=== PATIENT | male | born 1940 | race Caucasian/White ===

== ENCOUNTER 2018-07-19 12:31 | Outpatient (CLI) | payer OTHER | END 2018-07-19 23:59 | disposition home or self-care (01) | LOC: PETCFH 12:31 | PROVIDERS: ATTEND Internal Medicine | DX: R91.1 Solitary pulmonary nodule (principal) | CPT/HCPCS: 78815; A9552 ==

== ENCOUNTER → 2020-01-21 | Outpatient (CLI) | payer OTHER | END | disposition home or self-care (01) | LOC: PETCFH 01-08 09:24 | PROVIDERS: ATTEND Internal Medicine Pulmonary Disease | DX: C34.32 Malignant neoplasm of lower lobe, left bronchus or lung (principal); J43.9 Emphysema, unspecified; R91.8 Other nonspecific abnormal finding of lung field; J34.89 Other specified disorders of nose and nasal sinuses; K57.30 Diverticulosis of large intestine without perforation or abscess without bleeding; I25.10 Atherosclerotic heart disease of native coronary artery without angina pectoris; I70.0 Atherosclerosis of aorta; I77.810 Thoracic aortic ectasia; K43.9 Ventral hernia without obstruction or gangrene | CPT/HCPCS: 78815; A9552 ==